=== PATIENT | female | born 1950 | race Caucasian/White ===

== ENCOUNTER 2017-03-04 09:56 | Emergency (ER) | payer BC, OTHER ==
--- NOTE | 2017-03-04 10:12 | EDM.PDOC ---
ED HPI GENERAL MEDICAL PROBLEM - General Chief Complaint: ENT Problem Stated Complaint: bleeding from tooth excision site Time Seen by Provider: 03/04/17 10:05 Source of Information: Reports: Patient, Family (), Old Records ([facility] chart/EMR) History Limitations: Reports: No Limitations - History of Present Illness INITIAL COMMENTS - FREE TEXT/NARRATIVE: The patient was brought to the emergency room via private automobile by her for evaluation of persistent moderate bleeding from previous right upper molar tooth extraction 6 days ago. Patient has remained on Coumadin postoperatively with exception of holding one dose on 03/01 with one half dose on 03/02 and a full dose yesterday evening. Note that the patient did have some problems with postoperative bleeding since the above surgery with patient having a thrombin injection in the molar region on 03/01 with additional plasma infusion on the same day. She is having soaked dental packings on an hourly basis since yesterday afternoon. The patient denies any chest pain/pressure, heart flutter, dizziness, orthostasis, orthopnea, diaphoresis, paresthesias, recent decreased exercise tolerance, or any other anginal-type symptoms. No recent history of abdominal pain, heartburn, diarrhea, gross hematochezia, or any food intolerance, including fatty foods, etc., although she has had some moderately dark stools and nausea secondary to swallowing blood from her dental bleeding as above. Patient also had a low-grade fever of 99.2 2 days ago with frequent Tylenol use for her dental pain. She denies any other antipyretic medications including NSAIDs, etc.. The patient also denies any recent cough, wheezing, dyspnea, etc.. Onset: Gradual Onset Date: 03/03/17 Duration: Constant (Otherwise as above) Location: Reports: Face (Dental pain). Denies: Head, Neck, Chest, Abdomen, Back , Pelvis, Upper Extremity, Left, Upper Extremity, Right, Radiates to Severity: Mild Improves with: Reports: None Worsens with: Reports: None Context: Reports: Other (As above) Associated Symptoms: Reports: Fever/Chills (As above), Nausea/Vomiting (As above , no emesis). Denies: Confusion, Chest Pain, Cough, cough w sputum, Diaphoresis , Headaches, Loss of Appetite, Malaise, Rash, Seizure, Shortness of Breath, Syncope Treatments MAKE UP EDITOR: Reports: Acetaminophen tooth pain Pain Score (Numeric/FACES): 2 - Related Data Allergies Allergy/AdvReac Type Severity Reaction Status Date / Time No Known Allergies Allergy Verified 07/11/15 08:14 Home Meds: Home Meds Calcium Carbonate/Vitamin D3 [Calcium 600 + Vit D 200] 1 each PO DAILY 07/08/15 [History] Gemfibrozil 1 tab PO BID 07/08/15 [History] Levothyroxine Sodium 1 tab PO DAILY 07/08/15 [History] Lisinopril [Prinivil] 10 mg PO DAILY 07/08/15 [History] Metoprolol Tartrate 1 tab PO BID 07/08/15 [History] Multivitamin with Minerals [Multiple Vitamin] 1 tab PO DAILY 07/08/15 [History] Omeprazole 1 cap PO DAILY 07/08/15 [History] Triamcinolone Acetonide [Triamcinolone Acetonide 0.1% Crm] 1 applic TOP BID 11/14 [History] atorvaSTATin Calcium [Atorvastatin Calcium] 10 mg PO BEDTIME 07/08/15 [History] Acetaminophen [Tylenol Extra Strength] 1,000 mg PO Q4HR PRN 03/04/17 [History] Aspirin [Halfprin] 81 mg PO DAILY 03/04/17 [History] Hydrocodone/Acetaminophen [Hydrocodon-Acetaminophen 5-325] 1 tab PO Q4HR PRN 07/16 [History] Past Medical History HEENT History: Reports: Impaired Vision, Other (See Below). Denies: Cataract, Glaucoma, Hard of Hearing, Macular Degeneration, Retinal Detachment Other HEENT History: Patient wears glasses Cardiovascular History: Reports: Aneurysm, Cardiomyopathy, Heart Murmur, High Cholesterol, Hypertension, Other (See Below). Denies: Afib, Arrhythmia, Blood Clots/VTE/DVT, CAD, Heart Failure, NC, PVD, Stents, Syncope Other Cardiovascular History: History of proximal thoracic aortic aneurysm requiring repair and aortic mechanical aortic valve replacement as below. Postoperative cardiac murmurs including aortic valve insufficiency and perivalvular leakage by echocardiograms as below; grade 2 diastolic dysfunction ; moderate biatrial enlargement by echocardiogram valvular; palpitations of unknown etiology with distant event monitor as below Respiratory History: Reports: None, Intubation, Previous. Denies: Asthma, Bronchitis, Recurrent, COPD, Intubation, Difficult, PE, Pneumonia, Recurrent, Pneumothorax, Sleep Apnea, TB Gastrointestinal History: Reports: Cholelithiasis, Chronic Diarrhea, Diverticulosis, Gastritis, GERD, Hiatal Hernia. Denies: Celiac Disease, Colon Polyp, Fecal Incontinence, GI Bleed, Hepatitis, Inflammatory Bowel Disease, Irritable Bowel Syndrome, Jaundice, Pancreatitis, PUD Genitourinary History: Reports: Renal Calculus, Other (See Below). Denies: Acute Renal Failure, Chronic Renal Insuffiency, Dialysis, STD, Urinary Incontinence, UTI, Recurrent Other Genitourinary History: Nonsymptomatic bilateral urolithiasis; stable by CT scans left renal benign mass MEDICAL PARASITOLOGIST History: Reports: Dysfunctional Uterine Bleeding, Endometriosis, . Denies: Prolapsed Uterus, Spontaneous , Therapeutic : 3 Para: 3 (Preeclampsia with first with otherwise no complications during pregnancies or deliveries by ) LMP (Approximate): Menopausal (Surgical menopause as below) Musculoskeletal History: Reports: Arthritis, Back Pain, Chronic, Neck Pain, Chronic, Osteoarthritis. Denies: Amputation, Fracture, Gout, RA, SLE Neurological History: Reports: None. Denies: Cerebral Aneurysms, Concussion, CVA, Headaches, Chronic, Head Trauma, Migraines, MS, Neuropathy, Diabetic, Neuropathy, Peripheral, Parkinson's, Seizure, TIA Psychiatric History: Reports: None. Denies: Abuse, Victim of, ADD, ADHD, Addiction, Anxiety, Depression, Psych Hospitalization(s), PTSD, Suicide Attempt , Suicidal Ideation Endocrine/Metabolic History: Reports: Hypothyroidism. Denies: Diabetes, Type I , Diabetes, Type II, IDDM Hematologic History: Reports: None. Denies: Anemia, Blood Transfusion(s), Iron Deficiency Immunologic History: Reports: None. Denies: AIDS, HIV, SLE Oncologic (Cancer) History: Reports: None. Denies: Basal Cell Carcinoma, Cervix , Colon, Hodgkin's Lymphoma, Leukemia, Lymphoma, Malignant Melanoma, Non-Hodgkin 's Lymphoma, Squamous Cell Carcinoma, Uterine Dermatologic History: Reports: None. Denies: Eczema, Psoriasis - Infectious Disease History Infectious Disease History: Reports: Chicken Pox, Measles, Mumps. Denies: C- Difficile, Meningitis, Mononucleosis, MRSA, Pertussis (Whooping Cough), Rheumatic Fever, Rubella, Scarlet Fever, Shingles, TB, VRE - Past Surgical History Head Surgeries/Procedures: Reports: None HEENT Surgical History: Reports: Oral Surgery, Tonsillectomy, Other (See Below) . Denies: Adenoidectomy, Cataract Surgery, Eye Surgery, Laser Surgery, LASIK, Myringotomy w Tube(s), Naso-Sinus Surgery Other HEENT Surgeries/Procedures: Tonsillectomy at age 21; multiple teeth extractions Cardiovascular Surgical History: Reports: Aneurysm, Valve Replacement, Vascular Surgery, Other (See Below). Denies: Varicose Other Cardiovascular Surgeries/Procedures: Proximal aortic aneurysm repair with concomitant mechanical aortic valve placement in May 2003 Respiratory Surgical History: Reports: None. Denies: Thoracentesis GI Surgical History: Reports: Appendectomy, Cholecystectomy, Colonoscopy, EGD, Other (See Below). Denies: Hernia, Abdominal, Hernia, Inguinal, Hernia Repair/ Other, Polypectomy Other GI Surgeries/Procedures: Appendectomy concomitant with bilateral tubal ligation in about 1978; laparoscopic cholecystectomy in her 40s Female Surgical History: Reports: Hysterectomy, Salpingo-Oophorectomy, Tubal Ligation, Other (See Below). Denies: Breast Biopsy, Section, D&C Other Female Surgeries/Procedures: Tubal ligation in 1978; complete hysterectomy including bilateral salpingo-oophorectomy secondary to endometriosis in Endocrine Surgical History: Reports: None. Denies: Thyroid Biopsy Neurological Surgical History: Reports: None. Denies: C-Spine, Discectomy, Laminectomy, Lumbar Spine, Sacral Spine, Spinal Fusion, Vertebroplasty Musculoskeletal Surgical History: Reports: None. Denies: Arthroscopic Knee, Carpal Tunnel, Ganglion Cyst, Joint Replacement, ORIF, Shoulder Surgery Oncologic Surgical History: Reports: None. Denies: Biopsy of Breast Dermatological Surgical History: Reports: None - Past Imaging History Past Imaging History: Reports: Cardiac Echo (Last echocardiogram on 07/20/16 with ejection fraction of 65% and heart findings as above with previous evaluation on 07/08/14), CAT Scan (CT scan of the abdomen and pelvis with contrast on 06/30/15 and 12/30/15), Event Monitor (In about 2006), Mammogram ( Last mammogram on 08/15/16), Stress Testing (Low-level cardiac stress test on 19/07 after heart surgery as below), Ultrasound (Abdominal ultrasound on 06/27/15 ) Social & Family History - Tobacco Use Smoking Status *Q: Never Smoker Used Tobacco, but Quit: No Smoking Cessation Information Provided To Patient: No Second Hand Smoke Exposure: No Second Hand Smoke Education Provided: No - Caffeine Use Caffeine Use: Reports: Coffee (12 cups per day), Tea (One cup per month). Denies: Energy Drinks, Soda - Alcohol Use Alcohol Use History: Yes Days Per Week of Alcohol Use: 0 (No previous DWIs, problems with alcohol abuse, etc.) Number of Drinks Per Day: 3 (Usually wine for holidays and special occasions) Total Drinks Per Week: 0 Date of Last Drink: 02/21/17 Alcohol Use Frequency: Socially - Recreational Drug Use Recreational Drug Use: No Drug Use in Last 12 Months: No Recreational Drug Type: Denies: Amphetamines (Speed), Cocaine, Heroin, Inhalants (Glues, Solvents, Aerosols), LSD (Acid), Marijuana/Hashish, Methamphetamine, Morphine - Living Situation & Occupation Living situation: Reports: (1970, 3 children) Occupation: Retired (Previous middle school english teacher, 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 ED EXAM, GENERAL - Physical Exam Exam: See Below Exam Limited By: No Limitations General Appearance: Alert, WD/WN, No Apparent Distress Eye Exam: Bilateral Eye: EOMI, Normal Inspection (No nystagmus, patient wearing glasses), PERRL Ears: Normal External Exam, Normal Canal, Hearing Grossly Normal, Normal TMs Nose: Normal Inspection, Normal Mucosa, No Blood Throat/Mouth: Normal Lips, Normal Gums, Normal Oropharynx, Normal Voice, No Airway Compromise. No: Normal Teeth (Mild bleeding from right upper molar extraction), Perioral Cyanosis Head: Atraumatic, Normocephalic, Other (Moderate ecchymosis in the right lower lateral. The region). No: Facial Swelling, Facial Tenderness, Sinus Tenderness Neck: Normal Inspection, Supple, Non-Tender, Full Range of Motion. No: Lymphadenopathy (L), Lymphadenopathy (R), Thyromegaly Respiratory/Chest: No Respiratory Distress, Lungs Clear, Normal Breath Sounds, No Accessory Muscle Use, Chest Non-Tender. No: Pleural Rub, Retractions Cardiovascular: Normal Peripheral Pulses, Regular Rate, Rhythm, No Edema, No Gallop, No JVD, No Rub, Systolic Murmur (2/6 RACHANA of the aortic valve with radiation throughout the precordium additional moderate aortic valve click consistent with mechanical valve replacement). No: Diastolic Murmur (Diastolic murmur not appreciated), Gallop/S3, Gallop/S4, Friction Rub Peripheral Pulses: 2+: Radial (L), Radial (R), Dorsalis Pedis (L), Dorsalis Pedis (R) GI/Abdominal: Normal Bowel Sounds, Soft, Non-Tender, No Organomegaly, No Distention, No Abnormal Bruit, No Mass, Pelvis Stable, Other. No: Guarding ( obese) (Female) Exam: Deferred Rectal (Female) Exam: Deferred Back Exam: Normal Inspection, Full Range of Motion. No: CVA Tenderness (L), CVA Tenderness (R), Muscle Spasm Extremities: Normal Inspection, Normal Range of Motion, Non-Tender, No Pedal Edema, Normal Capillary Refill. No: Aleksey's Sign Neurological: Alert, Oriented, CN II-XII Intact, Normal Cognition, Normal Gait, No Motor/Sensory Deficits Psychiatric: Normal Affect, Normal Mood Skin Exam: Ecchymosis (As above). No: Diaphoretic, Lymphangitis, Petechiae, Wound/Incision Lymphatic: No Adenopathy Course - Vital Signs Last Recorded V/S: Last Vital Signs Temp 36.8 C 03/04/17 14:16 Pulse 69 03/04/17 15:03 Resp 20 03/04/17 15:03 BP 136/63 03/04/17 15:03 Pulse Ox 100 03/04/17 12:08 Vital Signs - 24 hr 03/04/17 03/04/17 03/04/17 10:10 10:30 11:13 Temperature Temperature [ 36.7 C 36.7 C Temporal] Pulse, 76 81 73 Peripheral [ Right Pulse Oximetry] Respiratory 20 20 20 Rate Blood Pressure 128/55 L 138/76 150/84 H [Right Upper Arm] O2 Sat by Pulse 97 98 99 Oximetry 03/04/17 03/04/17 03/04/17 11:36 12:08 13:09 Temperature 37.0 C Temperature [ Temporal] Pulse, 74 78 72 Peripheral [ Right Pulse Oximetry] Respiratory 18 18 20 Rate Blood Pressure 126/78 156/77 H 139/77 [Right Upper Arm] O2 Sat by Pulse 97 100 Oximetry 03/04/17 03/04/17 03/04/17 13:21 14:00 14:16 Temperature 36.8 C 36.8 C Temperature [ Temporal] Pulse, 74 73 70 Peripheral [ Right Pulse Oximetry] Respiratory 20 18 18 Rate Blood Pressure 143/91 H 144/92 H 144/66 H [Right Upper Arm] O2 Sat by Pulse Oximetry 03/04/17 03/04/17 14:35 15:03 Temperature Temperature [ Temporal] Pulse, 72 69 Peripheral [ Right Pulse Oximetry] Respiratory 20 20 Rate Blood Pressure 142/72 H 136/63 [Right Upper Arm] O2 Sat by Pulse Oximetry - Orders/Labs/Meds Orders: Active Orders 24 hr Category Date Time Status Sodium Chloride 0.9% [Normal Saline] 1,000 ml Med 03/04/17 12:00 Active IV ASDIRECTED Obtain Past Medical Record [OM.PC] Routine Oth 03/04/17 10:14 Active Transfuse Fresh Frozen Plasma [COMM] Urgent Oth 03/04/17 10:20 Ordered Medication Orders Sodium Chloride (Normal Saline) 1,000 mls @ 50 mls/hr IV ASDIRECTED [facility] Last Admin: 03/04/17 13:00 Dose: 50 mls/hr Labs: Laboratory Tests 03/04/17 03/04/17 03/04/17 Range/Units 10:14 10:14 10:20 WBC 6.6 (4.0-10.2) K/uL RBC 3.70 L (3.77-5.09) M/uL Hgb 11.3 L (11.7-15.5) g/dL Hct 33.8 L (34.0-46.0) % MCV 91.4 (84.0-98.0) fL MCH 30.5 (28.2-33.3) pg MCHC 33.4 (31.7-36.0) g/dL RDW 13.9 (11.2-14.1) % Plt Count 341 (150-350) K/uL Neut % (Auto) 71.7 (45.0-80.0) % Lymph % (Auto) 19.1 (10.0-50.0) % Pershing % (Auto) 7.6 (2.0-14.0) % Eos % (Auto) 1.4 (0.0-5.0) % Baso % (Auto) 0.2 (0.0-2.0) % Neut # (Auto) 4.71 (1.40-7.00) K/uL Lymph # (Auto) 1.25 (0.50-3.50) K/uL Pershing # (Auto) 0.50 (0.00-1.00) K/uL Eos # (Auto) 0.09 (0.00-0.50) K/uL Baso # (Auto) 0.01 (0.00-0.20) K/uL PT 58.4 H (9.8-11.7) SEC INR 5.2 H* APTT 59.7 H (22.1-29.8) SEC Sodium 138 (136-145) mmol/L Potassium 4.6 (3.5-5.1) mmol/L Chloride 101 (98-107) mmol/L Carbon Dioxide 19.4 L (21.0-32.0) mmol/L BUN 14 (7-18) mg/dL Creatinine 0.63 (0.51-1.17) mg/dL Est Cr Clr Drug Dosing 77.90 mL/min Estimated GFR (MDRD) > 60 mL/min Glucose 106 (74-106) mg/dL Calcium 9.9 (8.5-10.1) mg/dL Total Bilirubin 0.5 (0.2-1.0) mg/dL AST 25 (15-37) U/L ALT 24 (12-78) U/L Alkaline Phosphatase 82 (46-116) IU/L Total Protein 8.7 H (6.4-8.2) g/dL Albumin 4.2 (3.4-5.0) g/dL Blood Type 03/04/17 03/04/17 Range/Units 10:20 15:30 WBC (4.0-10.2) K/uL RBC (3.77-5.09) M/uL Hgb (11.7-15.5) g/dL Hct (34.0-46.0) % MCV (84.0-98.0) fL MCH (28.2-33.3) pg MCHC (31.7-36.0) g/dL RDW (11.2-14.1) % Plt Count (150-350) K/uL Neut % (Auto) (45.0-80.0) % Lymph % (Auto) (10.0-50.0) % Pershing % (Auto) (2.0-14.0) % Eos % (Auto) (0.0-5.0) % Baso % (Auto) (0.0-2.0) % Neut # (Auto) (1.40-7.00) K/uL Lymph # (Auto) (0.50-3.50) K/uL Pershing # (Auto) (0.00-1.00) K/uL Eos # (Auto) (0.00-0.50) K/uL Baso # (Auto) (0.00-0.20) K/uL PT 23.9 H D (9.8-11.7) SEC INR 2.2 APTT (22.1-29.8) SEC Sodium (136-145) mmol/L Potassium (3.5-5.1) mmol/L Chloride (98-107) mmol/L Carbon Dioxide (21.0-32.0) mmol/L BUN (7-18) mg/dL Creatinine (0.51-1.17) mg/dL Est Cr Clr Drug Dosing mL/min Estimated GFR (MDRD) mL/min Glucose (74-106) mg/dL Calcium (8.5-10.1) mg/dL Total Bilirubin (0.2-1.0) mg/dL AST (15-37) U/L ALT (12-78) U/L Alkaline Phosphatase (46-116) IU/L Total Protein (6.4-8.2) g/dL Albumin (3.4-5.0) g/dL Blood Type A POSITIVE Meds: Medications Generic Name Dose Route Start Last Admin Trade Name Freq PRN Reason Stop Dose Admin Sodium Chloride 1,000 mls @ 50 mls/hr 03/04/17 12:00 03/04/17 13:00 Normal Saline IV 50 mls/hr ASDIRECTED ANNETTE Administration Blood Transfusion Data TAR TOTAL (Cumulative) Blood 308 Intake [Ffp,[id number],Sgl Unit [id number]] TAR TOTAL (Cumulative) Blood 290 Intake [Fp,[id number],4cntr Unit [id number]] TAR Vital Signs Temperature [Temporal] 36.7 C Temperature 36.8 C Pulse, Peripheral [Right Pulse 69 Oximetry] Respiratory Rate 20 O2 Sat by Pulse Oximetry 100 Blood Pressure [Right Upper 136/63 Arm] Mean Blood Pressure [Right 87 Upper Arm] Departure - Departure Time of Disposition: 16:20 Disposition: Home, Self-Care 01 Condition: Good Clinical Impression: Elevated INR, Postoperative bleeding from mouth, Pain, dental, Postoperative anemia, History of mechanical aortic valve replacement, Tobacco abuse counseling , Hypothyroidism (acquired), Diastolic dysfunction, Peptic reflux disease, Hyperproteinemia Hypertension Qualifiers: Hypertension type: essential hypertension Qualified Code(s): I10 - Essential ( primary) hypertension Hyperlipidemia Qualifiers: Hyperlipidemia type: mixed hyperlipidemia Qualified Code(s): E78.2 - Mixed hyperlipidemia Osteoarthritis Qualifiers: Osteoarthritis location: multiple joints Osteoarthritis type: primary Qualified Code(s): M15.0 - Primary generalized (osteo)arthritis - Discharge Information Referrals: Carmen Pinedo PA-C [Primary Care Provider] - Forms: ED Department Discharge Additional Instructions: 1. Follow-up tomorrow for recommended CBC and INR with further instructions from [facility] as discussed. Recommend daily INR/PT until your INR has stabilized 2. Coumadin therapy is to be held until otherwise directed by your regular providers as discussed 3. Fall/injury precautions as discussed 4. Local ice packs as needed as discussed 5. Avoid all Tylenol and NSAID use at this time until otherwise directed. Note Tylenol and narcotic pain medications should be used with extreme caution as discussed with maximum total Tylenol dose of 3000 mg per day, including that present in your narcotic pain medication 6. Stop all tobacco exposure MARK as directed with counselling, information, etc. given - Problem List & Annotations (1) Elevated INR SNOMED Code(s): 897915611 Code(s): R79.1 - ABNORMAL COAGULATION PROFILE Status: Acute Priority: High Current Visit: Yes Onset Date: 03/04/17 Annotation/Comment:: Significantly elevated INR initially as above with 2 units of fresh frozen plasma given in the emergency room without complications. Subsequent INR results as above with only mildly subtherapeutic at INR secondary to her mechanical aortic valve indication. We will continue to hold her Coumadin for now with close follow-up with the Coumadin clinic as per discharge instructions. She is not currently not needing her narcotic medications, however she was once again cautioned about using Tylenol, etc. etc. with these medications to be used with discretion as discussed and as per discharge instructions. Excellent response to the above therapy with no significant bleeding at time of discharge. Various therapeutic options were given to the patient and her , who are requesting continued follow-up of her Coumadin care and INRs through the Coumadin clinic at [facility] in [place]. Note last INR in that facility at 2.8 on 03/01 with previous treatment as above. Close follow-up by Coumadin clinic, etc. as above with Coumadin to be held until otherwise directed by her regular providers/Coumadin clinic (2) Postoperative bleeding from mouth SNOMED Code(s): 349392235 Code(s): PAC3503 - Status: Acute Priority: High Current Visit: Yes Onset Date: ~02/05/17 Annotation/Comment:: As above (3) Postoperative anemia SNOMED Code(s): 870710298 Code(s): D64.9 - ANEMIA, UNSPECIFIED Status: Acute Priority: Medium Current Visit: Yes Onset Date: ~03/01/17 Annotation/Comment:: Mild postoperative anemia with hemoglobin of 11.5 on 03/01 at [facility] per her [facility] chart application. Continue to observe closely with repeat CBC recommended tomorrow as per discharge instructions (4) History of mechanical aortic valve replacement SNOMED Code(s): 618795003, [id number], [id number], 835582487, 680613559 Code(s): Z95.2 - PRESENCE OF PROSTHETIC HEART VALVE Status: Chronic Priority: Medium Current Visit: Yes Annotation/Comment:: Distant proximal thoracic aortic aneurysm repair with concomitant mechanical aortic valve replacement as above. Significantly elevated INR likely secondary to her frequent Tylenol use for her dental pain. The patient and her were counseled on Coumadin therapy, proper diet, avoidance of when necessary medications, including Tylenol, etc.. No cardiac symptoms at this time (5) Hyperlipidemia SNOMED Code(s): 81586634 Code(s): E78.5 - HYPERLIPIDEMIA, UNSPECIFIED Status: Chronic Priority: Medium Current Visit: Yes Annotation/Comment:: Currently under therapy Qualifiers: Hyperlipidemia type: mixed hyperlipidemia Qualified Code(s): E78.2 - Mixed hyperlipidemia (6) Hypertension SNOMED Code(s): 63925052 Code(s): I10 - ESSENTIAL (PRIMARY) HYPERTENSION Status: Chronic Priority : Medium Current Visit: Yes Annotation/Comment:: Stable by history and in the emergency room Qualifiers: Hypertension type: essential hypertension Qualified Code(s): I10 - Essential (primary) hypertension (7) Hypothyroidism (acquired) SNOMED Code(s): 524729220 Code(s): E03.9 - HYPOTHYROIDISM, UNSPECIFIED Status: Chronic Priority: Medium Current Visit: Yes Annotation/Comment:: Currently under therapy. Nonsymptomatic (8) Pain, dental SNOMED Code(s): 01690247 Code(s): K08.89 - OTHER SPECIFIED DISORDERS OF TEETH AND SUPPORTING STRUCTURES Status: Acute Priority: High Current Visit: Yes Onset Date: 02/26/17 Annotation/Comment:: Note status post right upper molar extraction as above. Patient cautioned on using when necessary Tylenol secondary to elevated INR. Topical therapy, including ice packs, etc. recommended. Pain under good control at this time with no recent narcotic medications required as above (9) Tobacco abuse counseling SNOMED Code(s): 678139445, 709391201 Code(s): Z71.6 - TOBACCO ABUSE COUNSELING Status: Chronic Priority: Medium Current Visit: Yes Annotation/Comment:: The patient and her were counseled on the risks of tobacco smoke exposure with tobacco cessation information provided (10) Diastolic dysfunction SNOMED Code(s): 0866532 Code(s): I51.9 - HEART DISEASE, UNSPECIFIED Status: Chronic Priority: Medium Current Visit: Yes Annotation/Comment:: Stable by serial and recent echocardiograms as above (11) Osteoarthritis SNOMED Code(s): 023653054 Code(s): M19.90 - UNSPECIFIED OSTEOARTHRITIS, UNSPECIFIED SITE Status: Chronic Priority: Medium Current Visit: Yes Annotation/Comment:: Stable by history Qualifiers: Osteoarthritis location: multiple joints Osteoarthritis type: primary Qualified Code(s): M15.0 - Primary generalized (osteo)arthritis (12) Peptic reflux disease SNOMED Code(s): 72042488 Code(s): K21.9 - GASTRO-ESOPHAGEAL REFLUX DISEASE WITHOUT ESOPHAGITIS Status: Chronic Priority: Medium Current Visit: Yes Annotation/Comment:: Stable by history with mild nausea and borderline melena secondary to ingestion of blood under to dental bleeding. Normal clinical exam today with no recent history of true abdominal pain, etc.. Continue current medical therapy (13) Hyperproteinemia SNOMED Code(s): 95797431 Code(s): E88.09 - OTH DISORDERS OF PLASMA-PROTEIN METABOLISM, NEC Status: Acute Priority: Medium Current Visit: Yes Onset Date: 03/04/17 Annotation/Comment:: Nonsymptomatic. Observe for now - Problem List Review Problem List Initiated/Reviewed/Updated: Yes - My Orders Last 24 Hours: My Active Orders 03/04/17 10:14 Obtain Past Medical Record [OM.PC] Routine 03/04/17 10:20 Transfuse Fresh Frozen Plasma [COMM] Urgent 03/04/17 12:00 Sodium Chloride 0.9% [Normal Saline] 1,000 ml IV ASDIRECTED - Assessment/Plan Last 24 Hours: My Active Orders 03/04/17 10:14 Obtain Past Medical Record [OM.PC] Routine 03/04/17 10:20 Transfuse Fresh Frozen Plasma [COMM] Urgent 03/04/17 12:00 Sodium Chloride 0.9% [Normal Saline] 1,000 ml IV ASDIRECTED Assessment:: As above. Plan: As above. Extensive precautions were given to the patient and her , who are in agreement with the treatment plan. See Patient Instructions for further treatment and plan.
[2017-03-04 10:44] LABS: CHLORIDE,CL 101 mmol/L (98-107); SODIUM,NA 138 mmol/L (136-145)
[2017-03-04] MEDS ORDERED: Sodium Chloride 0.9% 1,000 ML IV SCH (12:00)
[2017-03-04 15:04] VITALS: BP 136/63
== END 2017-03-04 16:20 | disposition home or self-care (01) ==
LOC: LL.ED 09:56
DX: K91.841 Postprocedural hemorrhage of a digestive system organ or structure following other procedure (principal); D64.9 Anemia, unspecified; K21.9 Gastro-esophageal reflux disease without esophagitis; E03.9 Hypothyroidism, unspecified; E88.09 Other disorders of plasma-protein metabolism, not elsewhere classified; M15.0 Primary generalized (osteo)arthritis; E78.2 Mixed hyperlipidemia; I10 Essential (primary) hypertension; Z79.899 Other long term (current) drug therapy; Z71.6 Tobacco abuse counseling; Z95.5 Presence of coronary angioplasty implant and graft
CPT/HCPCS: 36415; 36430; 80053; 85025; 85610; 85730; 86900; 86901; 96360; 96361; 99284; J7030; P9017